=== PATIENT | male | born 1955 | race African-American/Black ===

== ENCOUNTER 2017-09-22 04:47 | Outpatient (CLI) | payer BC | END 2017-09-22 04:48 | disposition critical access hospital (66) | LOC: EMS 04:47 | PROVIDERS: ATTEND Surgery | DX: R06.00 Dyspnea, unspecified (principal); R41.82 Altered mental status, unspecified | CPT/HCPCS: A0425; A0427 ==

== ENCOUNTER 2017-09-22 05:13 | Emergency (ER) | payer BC, OTHER ==
--- NOTE | 2017-09-22 05:31 | ED Physician Documentation ---
PD HPI ALTERED MENTAL STATUS - Stated complaint Stated Complaint: SOA, CONFUSION - Chief complaint Chief Complaint: Resp - History obtained from History obtained from: EMS - History of Present Illness Timing - onset: Enter time (04:00), Today Timing - details: Gradual onset Quality / character: Less responsive Recently seen: Admitted (discharged from [facility] 09/16 (admitted ) for pneumonia) - Additional information Additional information: limited HPI/ROS due to severely AMS. Per medic report, patient's family noted he was altered at approximately 4 AM, with last known normal 6 PM last night. They also noted patient appeared to have difficulty breathing. He is obtunded on my exam and cannot contribute to HPI/ROS. Family is on the way to ED, not present at time of my evaluation of this patient. Blood sugar (fingerstick) by medics was 117. Given duoneb en route, 91% RA pulse ox by medics. Another source of information is from discharge instructions from [facility], brought with patient to ED by medics. Review of Systems Unable to obtain: AMS PD PAST MEDICAL HISTORY - Past Medical History Past Medical History: Yes Other Past Medical History: hepatic encephalopathy, pneumonia - Present Medications Home Medications: Ambulatory Orders Medication Instructions Recorded Confirmed Aspirin 1 tab PO DAILY 09/22/17 09/22/17 Furosemide [Lasix] 1 tab PO BID 09/22/17 09/22/17 Lactulose 15 ml PO DAILY 09/22/17 09/22/17 Midodrine HCl 0.5 tab PO BID 09/22/17 09/22/17 Omeprazole [PriLOSEC] 1 tab PO DAILY 09/22/17 09/22/17 Potassium Chloride [K-Dur] 1 tab PO DAILY 09/22/17 09/22/17 rifAXIMin [Xifaxan] 1 tab PO BID 09/22/17 09/22/17 - Allergies Allergies/Adverse Reactions: Allergies Allergy/AdvReac Type Severity Reaction Status Date / Time codeine Allergy Unknown Verified 09/22/17 07:33 - Living Situation Living Situation: reports: With family Living Arrangement: reports: At home PD ED PE NORMAL - Vitals Vital signs reviewed: Yes - General General: Well developed/nourished, Other (obtunded; does not follow commands, occasionally grunts but otherwise nonverbal. ) - HEENT HEENT: Atraumatic, PERRL, Moist mucous membranes - Cardiac Cardiac: RRR, No murmur - Respiratory Respiratory: No respiratory distress, Other (diminished breath sounds left hemithorax) - Abdomen Abdomen: Soft, Other (moderate distention) - Neuro Eye Opening: None Motor: Localizes to Pain Verbal: Incomprehensible GCS Score: 8 PD ED PE EXPANDED - Extremities Extremities: Pedal edema bilateral (3+ bilateral) Results - Vitals Vitals: Oxygen O2 Source Room air Oxygen Flow Rate 3 - EKG (time done) 0540 Rate: Rate (enter#) (78) Rhythm: NSR Howe: Normal Intervals: Normal MA QRS: Normal Ischemia: Normal ST segments Other comments: Other comments (PVCs) - Labs Labs: Laboratory Tests 09/22/17 09/22/17 09/22/17 05:20 05:20 06:34 WBC 4.9 RBC 3.08 L Hgb 11.4 L Hct 33.0 L MCV 107.1 H MCH 36.9 H MCHC 34.4 RDW 16.9 H Plt Count 47 L MPV 10.6 Neut # (Auto) 3.8 Lymph # (Auto) 0.5 L [place] # (Auto) 0.5 Eos # (Auto) 0.0 Baso # (Auto) 0.0 Absolute Nucleated RBC 0.00 Nucleated RBC % 0.1 Manual Slide Review Indicated Platelet Estimate DECREASED (<130,000) Platelet Morphology NORMAL APPEARANCE PT INR Sodium Potassium Chloride Carbon Dioxide Anion Gap BUN Creatinine Estimated GFR (MDRD) Glucose Lactic Acid Calcium Total Bilirubin AST ALT Alkaline Phosphatase Ammonia Total Protein Albumin Globulin Albumin/Globulin Ratio Lipase Urine Color YELLOW Urine Clarity CLEAR Urine pH 7.0 Ur Specific [place] 1.010 Urine Protein NEGATIVE Urine Glucose (UA) NEGATIVE Urine Ketones NEGATIVE Urine Occult Blood TRACE-INTA Urine Nitrite NEGATIVE Urine Bilirubin SMALL H Urine Urobilinogen 0.2 (NORMAL) Ur Leukocyte Esterase NEGATIVE Ur Microscopic Review NOT INDICATED Urine Culture Comments NOT INDICATED Urine Opiates Screen NEGATIVE Ur Oxycodone Screen NEGATIVE Urine Methadone Screen NEGATIVE Ur Propoxyphene Screen NEGATIVE Ur Barbiturates Screen NEGATIVE Ur Tricyclics Screen NEGATIVE Ur Phencyclidine Scrn NEGATIVE Ur Amphetamine Screen NEGATIVE U Methamphetamines Scrn NEGATIVE U Benzodiazepines Scrn NEGATIVE Urine Cocaine Screen NEGATIVE U Cannabinoids Screen NEGATIVE 09/22/17 09/22/17 09/22/17 06:34 06:34 06:36 WBC RBC Hgb Hct MCV MCH MCHC RDW Plt Count MPV Neut # (Auto) Lymph # (Auto) [place] # (Auto) Eos # (Auto) Baso # (Auto) Absolute Nucleated RBC Nucleated RBC % Manual Slide Review Platelet Estimate Platelet Morphology PT 39.3 H INR 3.7 H Sodium 132 L Potassium 3.4 L Chloride 84 L Carbon Dioxide 34 H Anion Gap 14.0 H BUN 63 H Creatinine 3.1 H Estimated GFR (MDRD) 25 L Glucose 102 H Lactic Acid Calcium 9.1 Total Bilirubin 15.2 H AST 162 H ALT 46 Alkaline Phosphatase 160 H Ammonia 235.3 H* Total Protein 7.3 Albumin 3.7 Globulin 3.6 Albumin/Globulin Ratio 1.0 Lipase 57 H Urine Color Urine Clarity Urine pH Ur Specific [place] Urine Protein Urine Glucose (UA) Urine Ketones Urine Occult Blood Urine Nitrite Urine Bilirubin Urine Urobilinogen Ur Leukocyte Esterase Ur Microscopic Review Urine Culture Comments Urine Opiates Screen Ur Oxycodone Screen Urine Methadone Screen Ur Propoxyphene Screen Ur Barbiturates Screen Ur Tricyclics Screen Ur Phencyclidine Scrn Ur Amphetamine Screen U Methamphetamines Scrn U Benzodiazepines Scrn Urine Cocaine Screen U Cannabinoids Screen 09/22/17 09/22/17 09/22/17 06:36 10:09 13:27 WBC RBC Hgb Hct MCV MCH MCHC RDW Plt Count MPV Neut # (Auto) Lymph # (Auto) [place] # (Auto) Eos # (Auto) Baso # (Auto) Absolute Nucleated RBC Nucleated RBC % Manual Slide Review Platelet Estimate Platelet Morphology PT INR Sodium Potassium Chloride Carbon Dioxide Anion Gap BUN Creatinine Estimated GFR (MDRD) Glucose Lactic Acid 3.3 H* 3.8 H* 4.8 H* Calcium Total Bilirubin AST ALT Alkaline Phosphatase Ammonia Total Protein Albumin Globulin Albumin/Globulin Ratio Lipase Urine Color Urine Clarity Urine pH Ur Specific [place] Urine Protein Urine Glucose (UA) Urine Ketones Urine Occult Blood Urine Nitrite Urine Bilirubin Urine Urobilinogen Ur Leukocyte Esterase Ur Microscopic Review Urine Culture Comments Urine Opiates Screen Ur Oxycodone Screen Urine Methadone Screen Ur Propoxyphene Screen Ur Barbiturates Screen Ur Tricyclics Screen Ur Phencyclidine Scrn Ur Amphetamine Screen U Methamphetamines Scrn U Benzodiazepines Scrn Urine Cocaine Screen U Cannabinoids Screen - Rads (name of study) chest xray Radiology: Prelim report reviewed, See rad report PD MEDICAL DECISION MAKING - ED course Complexity details: reviewed old records, considered differential ED course: Case turned over to Dr. Moe at 7 AM pending test results - Sepsis Event Vital Signs: Oxygen O2 Source Room air Oxygen Flow Rate 3 Departure - Departure Disposition: 02 Transfer Acute Care Hosp Clinical Impression: End stage liver disease, Hepatic encephalopathy, Renal insufficiency, Pleural effusion associated with hepatic disorder, Thrombocytopenia, Coagulopathy, Lactate blood increase Ascites Qualifiers: Ascites type: other type Qualified Code(s): R18.8 - Other ascites Mental status alteration Qualifiers: Altered mental status type: unspecified Qualified Code(s): R41.82 - Altered mental status, unspecified Condition: Serious Discharge Date/Time: 09/22/17 14:21
[2017-09-22 05:39] LABS: MUDS CUTOFF CONCENTRATIONS CUTOFF CONC BELOW:
[2017-09-22 05:41] LABS: GLUCOSE, URINE (UA) NEGATIVE (NEGATIVE); KETONES,URINE (UA) NEGATIVE (NEGATIVE); LEUKOCYTE ESTERASE, URINE NEGATIVE (NEGATIVE); NITRITE,URINE NEGATIVE (NEGATIVE); OCCULT BLOOD,URINE TRACE-INTA (NEGATIVE); PROTEIN,URINE NEGATIVE (NEGATIVE); UROBILINOGEN,URINE 0.2 (NORMAL) E.U./dL (NORMAL)
[2017-09-22 06:01] LABS: AMPHETAMINE SCREEN,URINE NEGATIVE (NEGATIVE); BENZODIAZEPINES SCREEN, URINE NEGATIVE (NEGATIVE); BILIRUBIN,URINE SMALL (NEGATIVE); CLARITY,URINE CLEAR (CLEAR); COCAINE SCREEN URINE NEGATIVE (NEGATIVE); ICTOTEST,URINE POSITIVE; METHADONE SCREEN, URINE NEGATIVE (NEGATIVE); METHAMPHETAMINES SCREEN, URINE NEGATIVE (NEGATIVE); OPIATE SCREEN, URINE NEGATIVE (NEGATIVE); OXYCODONE SCREEN, URINE NEGATIVE (NEGATIVE); TRICYCLIC ANTIDEPRESSANT,URINE NEGATIVE (NEGATIVE)
[2017-09-22 06:02] LABS: PROPOXYPHENE SCREEN, URINE NEGATIVE (NEGATIVE)
--- NOTE | 2017-09-22 06:25 | CT Report ---
Procedure Date: 09/22/2017 Accession Number: [id number] / [id number] Procedure: CT - Head W/O CPT Code: FULL RESULT: EXAM: CT HEAD EXAM DATE: 09/22/2017 06:13 AM. CLINICAL HISTORY: Decreased mental status COMPARISON: None. TECHNIQUE: Multiaxial CT images were obtained from the foramen magnum to the vertex. Reformats: Sagittal and coronal. IV contrast: None. In accordance with CT protocol optimization, one or more of the following dose reduction techniques were utilized for this exam: automated exposure control, adjustment of mA and/or KV based on patient size, or use of iterative reconstructive technique. FINDINGS: Parenchyma: No intraparenchymal hemorrhage. No evidence of mass, midline shift, or CT findings of infarction. Garcia-white differentiation is distinct. Extraaxial Spaces: Normal for age. No subdural or epidural collections identified. Ventricles: Normal in size and position. Sinuses and Orbits: Imaged paranasal sinuses, orbits, and mastoids show no significant abnormality. Bones: No evidence of fracture or calvarial defect. Other: None. IMPRESSION: Normal head CT. RADIA
--- NOTE | 2017-09-22 06:33 | XRAY Report ---
Procedure Date: 09/22/2017 Accession Number: [id number] / [id number] Procedure: XR - Chest 2 View X-Ray CPT Code: 74111 FULL RESULT: EXAM: CHEST RADIOGRAPHY EXAM DATE: 09/22/2017 06:12 AM. CLINICAL HISTORY: Altered mental status. COMPARISON: None. TECHNIQUE: 2 views. FINDINGS: Lungs/Pleura: Large left-sided pleural effusion is present. There is associated airspace disease within the left lung, particularly the left lung base region. Small right-sided effusion is also present. There is no definite evidence of a pneumothorax. Mediastinum: Cardiac silhouette is obscured, but probably moderately enlarged. Other: None. IMPRESSION: 1. Large left-sided pleural effusion. Very minimal rightward shift of the mediastinal structure is present as a result. Consider a therapeutic thoracentesis. 2. Left mid and lower lung airspace disease may be from compressive atelectasis. Other etiologies difficult to exclude. 3. Small right-sided effusion. RADIA
[2017-09-22 06:55] LABS: BASOPHILS % (AUTO) 0.3 %; EOSINOPHILS % (AUTO) 0.2 %; HGB - HEMOGLOBIN 11.4 g/dL (14.0-18.0); LYMPHOCYTES # (AUTO) 0.5 10^3/uL (1.5-3.5); LYMPHOCYTES % (AUTO) 11.2 %; MEAN CORPUSCULAR HEMOGLOBIN 36.9 pg (27.0-31.0); MEAN CORPUSCULAR HGB CONC 34.4 g/dL (32.0-36.0); MEAN CORPUSCULAR VOLUME 107.1 fL (80.0-94.0); MONOCYTES # (AUTO) 0.5 10^3/uL (0.0-1.0); MONOCYTES % (AUTO) 10.6 %; NEUTROPHILS # (AUTO) 3.8 10^3/uL (1.5-6.6); NEUTROPHILS % (AUTO) 77.7 %; RED BLOOD COUNT 3.08 10^6/uL (4.70-6.10); RED CELL DISTRIBUTION WIDTH 16.9 % (12.0-15.0); WHITE BLOOD COUNT 4.9 x10^3/uL (4.8-10.8)
[2017-09-22 07:03] LABS: ALBUMIN 3.7 g/dL (3.2-5.5); BILIRUBIN,TOTAL 15.2 mg/dL (0.2-1.0); CALCIUM 9.1 mg/dL (8.5-10.3); CREATININE 3.1 mg/dL (0.6-1.2); TOTAL PROTEIN 7.3 g/dL (6.7-8.2)
[2017-09-22 07:14] LABS: MEAN PLATELET VOLUME 10.6 fL (7.4-11.4); PLATELET ESTIMATE, MANUAL DECREASED (<130,000) (NORMAL); PLATELET MORPHOLOGY NORMAL APPEARANCE (NORMAL); PLT - PLATELET COUNT 47 10^3/uL (130-450)
[2017-09-22 07:53] LABS: INR 3.7 (0.8-1.2); PT - PROTHROMBIN TIME 39.3 secs (9.9-12.6)
--- NOTE | 2017-09-22 08:01 | ED Physician Documentation ---
History of Present Illness - Stated complaint Stated Complaint: SOA, CONFUSION - Chief complaint Chief Complaint: Resp - Additonal information Additional information: assumed care 7 AM 61 male end stage liver dz 2/2 hep C cirrhosis and now liver cancer followed by hepatology at [facility] has been taken off transplant list per family recent admit to [facility] in [place] - per records faxed had volume overload requiring throacentesis X 2 and paracentesis (per family needed plt transfusion, FFP, and vit K first 2/2 thrombocytpopenia and coagulopathy 2/2 liver dz, fluid results not noted in dc summary) and is on lasix spironolactone and fluid restriction, TRINIDAD/hepatorenal syndrome for which rec was continue midodrine and referred to nephrology at [facility] , creat was 2.7 at dc was dced on 09/17 on lactulose rifaximin midodrine lasix and spironolactone among others per family gradually worsening since dc - more soa and more confused no falls no fever no complaints of abd pain Review of Systems Constitutional: denies: Fever Cardiac: denies: Chest pain / pressure Respiratory: reports: Dyspnea GI: denies: Abdominal Pain, Nausea, Vomiting Neurologic: reports: Generalized weakness, Confused Endocrine: reports: Easy bruising / bleeding Immunocompromised: denies: Immunocompromised PD PAST MEDICAL HISTORY - Past Medical History GI: Other Other Past Medical History: Liver Failure; Unable to obtain rest of HX - Present Medications Home Medications: Ambulatory Orders Medication Instructions Recorded Confirmed Aspirin 1 tab PO DAILY 09/22/17 09/22/17 Furosemide [Lasix] 1 tab PO BID 09/22/17 09/22/17 Lactulose 15 ml PO DAILY 09/22/17 09/22/17 Midodrine HCl 0.5 tab PO BID 09/22/17 09/22/17 Omeprazole [PriLOSEC] 1 tab PO DAILY 09/22/17 09/22/17 Potassium Chloride [K-Dur] 1 tab PO DAILY 09/22/17 09/22/17 rifAXIMin [Xifaxan] 1 tab PO BID 09/22/17 09/22/17 - Allergies Allergies/Adverse Reactions: Allergies Allergy/AdvReac Type Severity Reaction Status Date / Time codeine Allergy Unknown Verified 09/22/17 07:33 - Social History Does the pt smoke?: No Smoking Status: Never smoker PD ED PE NORMAL - Vitals Vital signs reviewed: Yes - General General: No: Alert and oriented X 3 (mumbling) - HEENT HEENT: PERRL (approx 2) - Neck Neck: Supple, no meningeal sign - Cardiac Cardiac: RRR - Respiratory Respiratory: Other (dec nidia) - Abdomen Abdomen: Other (md distension, soft) - Derm Derm: Normal color - Extremities Extremities: No deformity - Neuro Neuro: Other (aletred moving all ext). No: Alert and oriented X 3 Results - Vitals Vitals: Vital Signs - 24 hr 09/22/17 09/22/17 09/22/17 05:15 05:37 07:34 Temperature 36.8 C Heart Rate 76 78 88 Respiratory 16 17 20 Rate Blood Pressure 108/65 99/66 104/61 O2 Saturation 92 96 95 09/22/17 09/22/17 09/22/17 10:43 12:24 13:40 Temperature Heart Rate 100 94 99 Respiratory 20 20 21 Rate Blood Pressure 123/61 124/64 140/82 H O2 Saturation 98 09/22/17 09/22/17 14:13 14:16 Temperature 36.1 C L Heart Rate 103 H Respiratory 17 Rate Blood Pressure 140/82 H O2 Saturation 97 Oxygen O2 Source Room air Oxygen Flow Rate 3 - EKG (time done) 0540 Rate: Rate (enter#) (78) Rhythm: NSR (with PVCs) Intervals: Prolonged QT Ischemia: Non specific changes Other comments: Other comments (low voltage) - Labs Labs: Laboratory Tests 09/22/17 09/22/17 09/22/17 05:20 05:20 06:34 WBC 4.9 RBC 3.08 L Hgb 11.4 L Hct 33.0 L MCV 107.1 H MCH 36.9 H MCHC 34.4 RDW 16.9 H Plt Count 47 L MPV 10.6 Neut # (Auto) 3.8 Lymph # (Auto) 0.5 L [place] # (Auto) 0.5 Eos # (Auto) 0.0 Baso # (Auto) 0.0 Absolute Nucleated RBC 0.00 Nucleated RBC % 0.1 Manual Slide Review Indicated Platelet Estimate DECREASED (<130,000) Platelet Morphology NORMAL APPEARANCE PT INR Sodium Potassium Chloride Carbon Dioxide Anion Gap BUN Creatinine Estimated GFR (MDRD) Glucose Lactic Acid Calcium Total Bilirubin AST ALT Alkaline Phosphatase Ammonia Total Protein Albumin Globulin Albumin/Globulin Ratio Lipase Urine Color YELLOW Urine Clarity CLEAR Urine pH 7.0 Ur Specific [place] 1.010 Urine Protein NEGATIVE Urine Glucose (UA) NEGATIVE Urine Ketones NEGATIVE Urine Occult Blood TRACE-INTA Urine Nitrite NEGATIVE Urine Bilirubin SMALL H Urine Urobilinogen 0.2 (NORMAL) Ur Leukocyte Esterase NEGATIVE Ur Microscopic Review NOT INDICATED Urine Culture Comments NOT INDICATED Urine Opiates Screen NEGATIVE Ur Oxycodone Screen NEGATIVE Urine Methadone Screen NEGATIVE Ur Propoxyphene Screen NEGATIVE Ur Barbiturates Screen NEGATIVE Ur Tricyclics Screen NEGATIVE Ur Phencyclidine Scrn NEGATIVE Ur Amphetamine Screen NEGATIVE U Methamphetamines Scrn NEGATIVE U Benzodiazepines Scrn NEGATIVE Urine Cocaine Screen NEGATIVE U Cannabinoids Screen NEGATIVE 09/22/17 09/22/17 09/22/17 06:34 06:34 06:36 WBC RBC Hgb Hct MCV MCH MCHC RDW Plt Count MPV Neut # (Auto) Lymph # (Auto) [place] # (Auto) Eos # (Auto) Baso # (Auto) Absolute Nucleated RBC Nucleated RBC % Manual Slide Review Platelet Estimate Platelet Morphology PT 39.3 H INR 3.7 H Sodium 132 L Potassium 3.4 L Chloride 84 L Carbon Dioxide 34 H Anion Gap 14.0 H BUN 63 H Creatinine 3.1 H Estimated GFR (MDRD) 25 L Glucose 102 H Lactic Acid Calcium 9.1 Total Bilirubin 15.2 H AST 162 H ALT 46 Alkaline Phosphatase 160 H Ammonia 235.3 H* Total Protein 7.3 Albumin 3.7 Globulin 3.6 Albumin/Globulin Ratio 1.0 Lipase 57 H Urine Color Urine Clarity Urine pH Ur Specific [place] Urine Protein Urine Glucose (UA) Urine Ketones Urine Occult Blood Urine Nitrite Urine Bilirubin Urine Urobilinogen Ur Leukocyte Esterase Ur Microscopic Review Urine Culture Comments Urine Opiates Screen Ur Oxycodone Screen Urine Methadone Screen Ur Propoxyphene Screen Ur Barbiturates Screen Ur Tricyclics Screen Ur Phencyclidine Scrn Ur Amphetamine Screen U Methamphetamines Scrn U Benzodiazepines Scrn Urine Cocaine Screen U Cannabinoids Screen 09/22/17 09/22/17 09/22/17 06:36 10:09 13:27 WBC RBC Hgb Hct MCV MCH MCHC RDW Plt Count MPV Neut # (Auto) Lymph # (Auto) [place] # (Auto) Eos # (Auto) Baso # (Auto) Absolute Nucleated RBC Nucleated RBC % Manual Slide Review Platelet Estimate Platelet Morphology PT INR Sodium Potassium Chloride Carbon Dioxide Anion Gap BUN Creatinine Estimated GFR (MDRD) Glucose Lactic Acid 3.3 H* 3.8 H* 4.8 H* Calcium Total Bilirubin AST ALT Alkaline Phosphatase Ammonia Total Protein Albumin Globulin Albumin/Globulin Ratio Lipase Urine Color Urine Clarity Urine pH Ur Specific [place] Urine Protein Urine Glucose (UA) Urine Ketones Urine Occult Blood Urine Nitrite Urine Bilirubin Urine Urobilinogen Ur Leukocyte Esterase Ur Microscopic Review Urine Culture Comments Urine Opiates Screen Ur Oxycodone Screen Urine Methadone Screen Ur Propoxyphene Screen Ur Barbiturates Screen Ur Tricyclics Screen Ur Phencyclidine Scrn Ur Amphetamine Screen U Methamphetamines Scrn U Benzodiazepines Scrn Urine Cocaine Screen U Cannabinoids Screen - Rads (name of study) CTH Radiology: See rad report (no acute) CXR Radiology: See rad report (large L small R effusion, compressive atelectasis) PD MEDICAL DECISION MAKING - ED course ED course: 61 male with end stage liver dz to ER with AMS has labs CXR CTH ammonia level very high >600 will give lactulose PO or HI lactate was ordered upon arrival and is elevated - could be 2/2 infection but also could simply be 2/2 advanced liver dz, pt has no fever no pna no UTI would like parancentesis to rule out SBP, maybe LP to rule out meningitis ( though AMS is more likely 2/2 heaptic encephalopathy) but plt too low and INR to high to safely do these procedures without plt transfusion which is not available at [facility] - it seems he was unlikely to have has SBP at time of recent dc as he was taped and fluid was surely tested and SBP was not a dc diagnosis also large pleural effusion causing slight shift, but not hypoxia as with paracentesis, unable to safely tap pleural effuson as no plt available at [facility] will need transfer to higher level [facility] no beds per family req called [facility] - also no beds family called [facility] on their own as well - no beds called [facility] transfer center at 8 AM for transfer 0845 AM spoke to hospitalist Dr Moreno and he accepts in transfer - we discussed the elev lactate - no source for infection found so far - CXR obscured by effusion, urine clean, not safe to tap but no SBP on recent paracentesis - he recommends hold antibiotics for now rpt lactate ordered at 3 hr per protocol and is higher - have already discussed ab with receiving team and they recommend to hold off antibiotics for now and cannot give more fluids 2/2 large effusion rpt lactate again run at 6 hr per EMR protocol and now > 4 after the thrid lactate at 2 PMm pt still awaiting transport to [facility] - delays for bed availability / confirmation and then delays getting transport arranged lactate still rising - numerous possible causes - could just be 2/2 liver failure- no source for infection that can safely be determined in the ER at [facility] (needs chest and abd tapped after plt transfusion) but transport to higher level of care is continuing to suffer delays although liver dz could explain an elevated level, the continued rise in lactate level is concerning for progressing infection so will start antibiotics to cover potential sources (cefepime, vanco, flagyl) he is not hypotensive and has large pleural effusions and ascites so will not give usual 30 cc / kg IVF - called [facility] to update on changes - that we started cefepime, vanco and flagyl pt transport arrived at 1415 - looks like he only got the cefepime - presume this was relayed in nurse to nurse report call will also req [facility] to fax final note to [facility] - Sepsis Event Vital Signs: Vital Signs - 24 hr 09/22/17 09/22/17 09/22/17 05:15 05:37 07:34 Temperature 36.8 C Heart Rate 76 78 88 Respiratory 16 17 20 Rate Blood Pressure 108/65 99/66 104/61 O2 Saturation 92 96 95 09/22/17 09/22/17 09/22/17 10:43 12:24 13:40 Temperature Heart Rate 100 94 99 Respiratory 20 20 21 Rate Blood Pressure 123/61 124/64 140/82 H O2 Saturation 98 09/22/17 09/22/17 14:13 14:16 Temperature 36.1 C L Heart Rate 103 H Respiratory 17 Rate Blood Pressure 140/82 H O2 Saturation 97 Oxygen O2 Source Room air Oxygen Flow Rate 3 Departure - Departure Disposition: 02 Transfer Acute Care Hosp Clinical Impression: End stage liver disease, Hepatic encephalopathy, Renal insufficiency, Pleural effusion associated with hepatic disorder, Thrombocytopenia, Coagulopathy, Lactate blood increase Ascites Qualifiers: Ascites type: other type Qualified Code(s): R18.8 - Other ascites Mental status alteration Qualifiers: Altered mental status type: unspecified Qualified Code(s): R41.82 - Altered mental status, unspecified Condition: Serious Discharge Date/Time: 09/22/17 14:21
[2017-09-22] MEDS ORDERED: LACTULOSE 10 GM /15 ML UDC PR STA (08:08)
[2017-09-22] MEDS ORDERED: LACTULOSE 10 GM/15 ML BOTTLE PR STA (08:39)
[2017-09-22 13:41] VITALS: BP 140/82
[2017-09-22] MEDS ORDERED: VANCOMYCIN INJ 1 GM in SODIUM CHLORIDE 0.9% 500 ML IV STA (13:57)
[2017-09-22] MEDS ORDERED: metroNIDAZOLE 500 MG/100 ML 500 MG/100 ML BAG IV ONE (13:57)
[2017-09-22] MEDS ORDERED: CEFEPIME 1 GM in SODIUM CHLORIDE 0.9% MINIBAG 100 ML IV STA ×2 (13:57→14:08)
[2017-09-22] MEDS ORDERED: CEFEPIME 2 GM in SODIUM CHLORIDE 0.9% MINIBAG 100 ML IV STA (14:09)
== END 2017-09-22 14:21 | disposition short-term general hospital (02) ==
LOC: EDUNIT# → ED 05:13 → SUPCPDRO 05:13 → ED 14:21
DX: K72.90 Hepatic failure, unspecified without coma (principal); N28.9 Disorder of kidney and ureter, unspecified; J91.8 Pleural effusion in other conditions classified elsewhere; D69.6 Thrombocytopenia, unspecified; D68.9 Coagulation defect, unspecified; R74.0 Nonspecific elevation of levels of transaminase and lactic acid dehydrogenase [LDH]; R18.8 Other ascites; R41.82 Altered mental status, unspecified
CPT/HCPCS: 36415; 51701; 70450; 71046; 80053; 80306; 81003; 82140; 83605; 83690; 85025; 85610; 93005; 96374; 99284; 99285; A9270; 81001; 87086